=== PATIENT | male | born 1935 | race Caucasian/White ===

== ENCOUNTER 2023-12-23 19:50 | Emergency (ER) | payer MEDICAID, MEDICARE ==
[2023-12-23 20:28] LABS: BASOPHILS ABSOLUTE AUTO 0.04 K/uL (0.00-0.10); BASOPHILS PERCENT AUTO 0.5 % (0.1-1.3); EOSINOPHILS ABSOLUTE AUTO 0.38 K/uL (0.00-0.40); EOSINOPHILS PERCENT AUTO 4.4 % (0.0-5.4); HEMOGLOBIN 11.3 g/dL (12.9-16.9); IMMATURE GRAN ABSOLUTE AUTO 0.06 K/uL (0.00-0.23); IMMATURE GRAN PERCENT AUTO 0.7 % (0.0-0.7); MEAN CORPUSCULAR HEMOGLOBIN 29.7 pg (31.6-35.5); MEAN CORPUSCULAR HGB CONC 34.2 g/dL (31.6-35.5); MEAN CORPUSCULAR VOLUME 86.6 fL (81.4-99.0); MONOCYTES ABSOLUTE AUTO 1.13 K/uL (0.20-0.90); NEUTROPHILS ABSOLUTE AUTO 5.75 K/uL (1.0-7.6); NEUTROPHILS PERCENT AUTO 66.4 % (40.0-78.1); PLATELET COUNT,PLT 228 K/uL (130-375); RED BLOOD CELL COUNT 3.81 M/uL (4.14-5.76); WHITE BLOOD CELL COUNT,WBC 8.7 K/uL (3.2-11.0)
[2023-12-23 20:44] LABS: ANION GAP 12.6 mmol/L (5.0-14.0); CALCIUM 9.3 mg/dL (8.5-10.1); CREATININE 1.4 mg/dL (0.8-1.3); EST CRCL DRUG DOSING (CG) 27.54 mL/min; POTASSIUM,K 3.6 mmol/L (3.6-5.2)
[2023-12-23] MEDS: Iopamidol 612 MG/ML 100 ML Bottle IV SCH (20:59)
[2023-12-23] MEDS: Sodium Chloride 0.9% 80 ML IV SCH (20:59)
[2023-12-23] MEDS: Lidocaine 1% with EPINEPHrine 1:100,000 20 ML MDV INJECT ONE (21:41)
[2023-12-23] MEDS: Bacitracin Oint 1 GM U/D Packet TOP ONE (21:43)
== END 2023-12-24 00:05 | disposition home or self-care (01) ==
LOC: JP.ED 19:50
DX: S01.01XA Laceration without foreign body of scalp, initial encounter (principal); Z88.8 Allergy status to other drugs, medicaments and biological substances; Z79.899 Other long term (current) drug therapy
CPT/HCPCS: 12004; 36415; 70450; 71260; 72125; 74177; 76377; 80048; 85025; 99284; J3490; Q9967; 99283